=== PATIENT | female | born 1940 | race Caucasian/White ===

== ENCOUNTER 2016-12-08 21:02 | Emergency (ER) | payer MEDICARE, OTHER ==
--- NOTE | ~2016-12-08 | ER ---
PATIENT'S NAME: G[facility]SHAN [facility] AGE: 76 Y [address] ROOM: [place] [address] LOCATION: [facility] ADMIT DATE: 12/08/2016 ER/Outpatient Report DISCHARGE DATE: 12/08/2016 FAMILY PHYSICIAN: Coral Gordon MD ATTENDING PHYSICIAN: Di Pablo SEEN AT: 2115 hours. HISTORY OF PRESENT ILLNESS: The patient is a 76-year-old female who said 5 days ago she fell, she hit her knee on the ground. The patient has suffered a small abrasion, and within an hour after the accident, she developed swelling over the dorsal knee. The patient then today noticed that she had some increased swelling, but it had developed some redness. MEDICAL HISTORY: ALLERGIES: PREDNISONE. CURRENT MEDICATIONS: See her copied list which was reviewed. MEDICAL HISTORY: Includes hypertension, migraines, hypothyroidism, hyperlipidemia, and history of neuropathy. SOCIAL HISTORY: Nonsmoker. Denies alcohol use. REVIEW OF SYSTEMS: GENERAL HEALTH: Good for age. Denies any recent fever or chills. MUSCULOSKELETAL: Swelling and redness, dorsal left knee. Denied any calf pain. PHYSICAL EXAMINATION: VITAL SIGNS: Temperature is 98.6, respiratory rate 14, pulse 64, and O2 saturations were 95%. GENERAL APPEARANCE: Alert 76-year-old. MUSCULOSKELETAL: Exam of the left knee showed some swelling, redness, fluctuant of the dorsal knee. The patella was just slightly tender. There were some abrasions noted laterally. The area was slightly tender, but not significantly. The joint itself appeared stable as far as any ligament injury. PATIENT'S NAME: GULSHAN [facility] AGE: 76 Y [address] ROOM: [place], [place] [address] LOCATION: [facility] ADMIT DATE: 12/08/2016 ER/Outpatient Report DISCHARGE DATE: 12/08/2016 FAMILY PHYSICIAN: Coral Gordon MD ATTENDING PHYSICIAN: Di Pablo DIAGNOSTIC DATA: X-rays of the knee including the sunrise view showed some degenerative changes, but no obvious fracture. ASSESSMENT: 1. Ground level fall. 2. Patellar hematoma with possible cellulitis. 3. History of hypertension. 4. History of hypothyroidism. PLAN: I did have Dr. Pablo examine the patient. Also, we agreed on treatment with doxycycline 100 mg b.i.d. Limit her activity. Follow up with her primary care in 48 hours. We did discuss possibly an aspiration to rule out infection which the patient chose not to do so at this time. She was advised so if she develops fever or pain or redness increases or any concerns, to return to the emergency room. BRADLEY HOOD FOR DI PABLO, DO LEON/dread /[id number] ATTENDING ADDENDUM: I personally saw and evaluated the patient in conjunction with the PA. The patient does appear to have swelling over the left knee. She does have a superfical abrasion as well with some surrounding erythema. I have axial loaded the patient's knee without pain, she has full range of motion at the knee. I do feel she more likely has a knee contusion with effusion in the knee joint and some superficial cellulitis from the abrasion. I have discussed this with her. I have discussed that we have not fully ruled out an infection in the knee joint itself and the only way to do that is with a joint aspiration (needle in the joint). She does not wish to proceed with that at this time. I have discussed the risks of perhaps severe disablity from joint injury, even from bad infection. I have strongly recommended close follow up with an orthopedic surgeon. We will try the doxycycline and have discussed she is also to follow up with her PCP in 2 days. Return to care instrucitons, including worsening symptoms or any other concerns to return to the emergency department as soon as possible. DI PABLO DO d: 12/09/16 0153 t: 12/16/16 1010, OUTPATIENT REPORT
== END 2016-12-08 21:41 | disposition disaster alternative care site (69) ==
LOC: GACC 21:02
DX: S80.02XA Contusion of left knee, initial encounter (principal); I10 Essential (primary) hypertension; E03.9 Hypothyroidism, unspecified; E78.5 Hyperlipidemia, unspecified; Z88.8 Allergy status to other drugs, medicaments and biological substances; W01.10XA Fall on same level from slipping, tripping and stumbling with subsequent striking against unspecified object, initial encounter

== ENCOUNTER → 2017-01-26 | Outpatient (CLI) | payer MEDICARE, OTHER | END | disposition disaster alternative care site (69) | LOC: GBCOE 13:03 | DX: Z12.31 Encounter for screening mammogram for malignant neoplasm of breast (principal); Z85.3 Personal history of malignant neoplasm of breast | CPT/HCPCS: G0202 ==